=== PATIENT | female | born 1990 | race Caucasian/White ===

== ENCOUNTER 2021-04-23 23:02 | Emergency (ER) | payer SELFPAY ==
[2021-04-24] MEDS ORDERED: ACETAMINOPHEN 325 MG TAB PO ONE (00:51)
--- NOTE | 2021-04-24 00:54 | Emergency Department Report ---
ED General Adult HPI - General Chief complaint: Urogenital-Female Stated complaint: BURNING BREAST Time Seen by Provider: 04/24/21 00:18 Source: patient Mode of arrival: Ambulatory Limitations: No Limitations - History of Present Illness Initial comments: 30-year-old female presents to the ER today with complaints of a burning pain to both of her breasts. Patient states that her symptoms started about 3 days ago. She states that has been intermittent. Patient states that initially was some pain to the lateral aspect of both of breath but now she feels like is getting more diffuse and worse. She denies any apparent breast swelling, notable lumps or masses, skin color changes or nipple discharge. She denies any injury to her breasts. She denies any apparent rash. Patient states that her last menstrual cycle was March 19, 2021. She has not yet started her period for this month. She states that she does not think she is because she uses condoms for protection each time she has sexual intercourse. She denies any family history of breast cancer. She states that she tried ibuprofen for the pain without much relief. MD Complaint: Bilateral Breast pain -: Gradual - Related Data Previous Rx's Medication Instructions Recorded Last Taken Type Acetaminophen [Tylenol] 500 mg PO Q6HR #30 tablet 03/12/14 Unknown Rx cephALEXin [Keflex] 500 mg PO Q8HR #7 day 03/12/14 Unknown Rx Famotidine [Pepcid] 20 mg PO BID #30 tablet 04/24/21 Unknown Rx Ondansetron [Zofran Odt] 4 mg PO Q8HR PRN #15 tab.rapdis 04/24/21 Unknown Rx Pantoprazole [Protonix] 40 mg PO QDAY #30 tablet 04/24/21 Unknown Rx Allergies Allergy/AdvReac Type Severity Reaction Status Date / Time No Known Allergies Allergy Verified 03/11/14 20:07 ED Review of Systems ROS: Stated complaint: BURNING BREAST Other details as noted in HPI Comment: All other systems reviewed and negative Constitutional: denies: chills, fever Eyes: denies: eye pain, eye discharge, vision change ENT: denies: ear pain, throat pain, dental pain, hearing loss, epistaxis, congestion Respiratory: denies: cough, shortness of breath, SOB with exertion, SOB at rest, wheezing Cardiovascular: other (Bilateral breast pain). denies: chest pain, palpitations , dyspnea on exertion, syncope, paroxysmal nocturnal dyspnea Gastrointestinal: denies: abdominal pain, nausea, diarrhea Genitourinary: denies: urgency, dysuria, frequency, hematuria, discharge, abnormal menses, dyspareunia Musculoskeletal: denies: back pain, joint swelling, arthralgia Skin: denies: rash, lesions Neurological: denies: headache, weakness, numbness, paresthesias, confusion, abnormal gait, vertigo Psychiatric: denies: anxiety, depression, auditory hallucinations, visual hallucinations, homicidal thoughts Hematological/Lymphatic: denies: easy bleeding, easy bruising, swollen glands ED Past Medical Hx - Past Medical History Previous Medical History?: No - Surgical History Past Surgical History?: No - Social History Smoking Status: Never Smoker Substance Use Type: None - Medications Home Medications: Home Medications Medication Instructions Recorded Confirmed Last Taken Type Acetaminophen [Tylenol] 500 mg PO Q6HR #30 tablet 03/12/14 Unknown Rx cephALEXin [Keflex] 500 mg PO Q8HR #7 day 03/12/14 Unknown Rx Famotidine [Pepcid] 20 mg PO BID #30 tablet 04/24/21 Unknown Rx Ondansetron [Zofran Odt] 4 mg PO Q8HR PRN #15 tab.rapdis 04/24/21 Unknown Rx Pantoprazole [Protonix] 40 mg PO QDAY #30 tablet 04/24/21 Unknown Rx ED Physical Exam - General Limitations: No Limitations General appearance: alert, in no apparent distress - Head Head exam: Present: atraumatic, normocephalic, normal inspection - Eye Eye exam: Present: normal appearance, PERRL, EOMI Pupils: Present: normal accommodation - Neck Neck exam: Present: normal inspection, full ROM - Respiratory Respiratory exam: Present: normal lung sounds bilaterally, other (Mild tenderness to palpation to the lateral aspect of both breasts around 9:00; no apparent breast swelling, no mass or lumps palpated, no nipple discharge, no skin discoloration noted no rash). Absent: respiratory distress, wheezes, rales, rhonchi, stridor, chest wall tenderness - Cardiovascular Cardiovascular Exam: Present: regular rate, normal rhythm, normal heart sounds - Neurological Exam Neurological exam: Present: alert, oriented X3, CN II-XII intact, normal gait - Psychiatric Psychiatric exam: Present: normal affect, normal mood - Skin Skin exam: Present: intact ED Course Vital Signs 04/24/21 00:07 Temperature 98.0 F Pulse Rate 104 H Respiratory 16 Rate Blood Pressure 140/80 O2 Sat by Pulse 99 Oximetry ED Medical Decision Making - Lab Data Result diagrams: 04/24/21 02:48 04/24/21 02:48 - EKG Data EKG shows normal: sinus rhythm Rate: normal (96) - Radiology Data Radiology results: report reviewed Patient: ETELVINA CONROY MR#: [id number] : 1990 Acct:[id number] Age/Sex: 30 / F ADM Date: 04/23/21 Loc: ED Attending Dr: Ordering Physician: JESE MURGUIA Date of Service: 04/24/21 Procedure(s): XR chest routine 2V Accession Number(s): [id number] cc: JESE MURGUIA Fluoro Time In Minutes: XR chest routine 2V INDICATION / CLINICAL INFORMATION: burning in chest. COMPARISON: None available. FINDINGS: SUPPORT DEVICES: None. HEART /PULMONARY VASCULATURE: No significant abnormality. LUNGS / PLEURA: No significant pulmonary or pleural abnormality. No pneumothorax. ADDITIONAL FINDINGS: No significant additional findings. IMPRESSION: 1. No acute findings. Signer Name: Ernesto Garcia MD Signed: 04/24/2021 2:39 AM Workstation Name: [id number] Transcribed By: NERI Dictated By: ERNESTO GARCIA MD Electronically Authenticated By: ERNESTO GARCIA MD Signed Date/Time: 04/24/21 0239 - Medical Decision Making 0204 ; patient initially came in with complaints of burning sensation to both of her breast. While getting her ready for discharge, she started stating that she is now having burning in her substernal chest and now she feels nauseous and like she is about to vomit. She denies any shortness of breath, cough/URI symptoms, and Pleuritic pain. She denies any calf pain or leg swelling. She does not take any medications on a regular basis. She does not smoke, and she denies any illicit drug use. She denies any alcohol abuse. She denies any risk factors for PE/DVT. Reexamination of patient, shows that she appears anxious, and chest chest clear to auscultation. EKG has been ordered, chest x-ray ordered as well as some basic labs. 0355: EKG show normal sinus rhythm without any signs of STEMI, or other acute ischemic changes or significant dysrhythmias. Labs reviewed, CBC unremarkable, CMP shows mild hyperglycemia with a glucose of 132 and mild elevation to alk phos at 137, remainder of the CMP unremarkable. Troponin is negative. Chest x- ray shows nothing acute. Patient reports feeling much better the Pepcid, Zofran, Maalox and viscous lidocaine. Patient does have an elevated alk phos, but at this time patient has no abdominal pain and she has a soft nontender abdomen. Emergent gallbladder ultrasound not indicated at this time. Discussed labs results with patient. Patient reports history of gestational diabetes but she states that this had improved after she delivered but I do recommend that she follows up with her primary care doctor to keep monitoring her blood sugars, as well as alkaline phos. Patient symptoms could be related to GERD, very low suspicion at this time for acute coronary syndrome/unstable angina (Heart score 0), PE (PERC score 0), dissection, cholecystitis, sepsis or any other emergent c onditions warranting additional testing, or admission or specialist consult at this time. I also recommend that she follows up with her [facility] for breast mammograms. Patient expressed understanding of all instructions and agree with plan. Patient stable at time of discharge. Critical care attestation.: If time is entered above; I have spent that time in minutes in the direct care of this critically ill patient, excluding procedure time. ED Disposition Clinical Impression: Pain of both breasts, Nonspecific chest pain, GERD (gastroesophageal reflux disease), Elevated alkaline phosphatase level, Elevated blood sugar Disposition: 01 HOME / SELF CARE / HOMELESS Is pt being admited?: No Does the pt Need Aspirin: No Condition: Stable Instructions: Breast Tenderness, Heartburn, [id number], Food Choices for Gastroesophageal Reflux Disease, Adult, Nonspecific Chest Pain, Adult, Blood Glucose Monitoring, Adult Additional Instructions: It is important that you follow-up with your [facility] for outpatient mammogram for further evaluation of your bilateral breast pain. It is also important that you follow-up with the primary care doctor listed on your discharge instruction for continued monitoring of your blood sugars and also your alkaline phosphatase levels. Take the Pepcid and the Protonix as well as the Zofran as prescribed. You can take Tylenol as needed for pain. I would also recommend staying away from spicy foods, acidic foods, caffeine, NSAIDs for at least 2 weeks. Return to the ER if any symptoms changes or worsens in any way. Prescriptions: Famotidine [Pepcid] 20 mg PO BID #30 tablet Pantoprazole [Protonix] 40 mg PO QDAY #30 tablet Ondansetron [Zofran Odt] 4 mg PO Q8HR PRN #15 tab.rapdis PRN Reason: Nausea Referrals: [facility] [Provider Group] - 3-5 Days [facility] [Provider Group] - 3-5 Days [facility] [Provider Group] - 3-5 Days Forms: Work/School Release Form(ED) Time of Disposition: 01:53 Print Language: TUVALUAN
[2021-04-24] MEDS ORDERED: ONDANSETRON 4 MG ODT TAB PO ONE (02:03)
[2021-04-24] MEDS ORDERED: FAMOTIDINE 20 MG TAB PO ONE (02:03)
[2021-04-24] MEDS ORDERED: ALUM-MAG HYDROXIDE-SIMETHICONE 200-200-20MG/5ML ORAL LIQD 30 ML PO ONE (02:04)
--- NOTE | 2021-04-24 02:43 | XRay Report ---
XR chest routine 2V INDICATION / CLINICAL INFORMATION: burning in chest. COMPARISON: None available. FINDINGS: SUPPORT DEVICES: None. HEART /PULMONARY VASCULATURE: No significant abnormality. LUNGS / PLEURA: No significant pulmonary or pleural abnormality. No pneumothorax. ADDITIONAL FINDINGS: No significant additional findings. IMPRESSION: 1. No acute findings. Signer Name: Ishmael Garcia MD Signed: 04/24/2021 2:39 AM Workstation Name: [id number]
[2021-04-24] MEDS ORDERED: LIDOCAINE VISCOUS 2% 15 ML ORAL LIQD PO ONE (03:10)
[2021-04-24 03:29] LABS: Basophils % (Auto) 0.3 % (0.0-1.8); Eosinophils % (Auto) 0.1 % (0.0-4.3); Hemoglobin 13.2 gm/dl (10.1-14.3); Lymphocytes # (Auto) 1.4 K/mm3 (1.2-5.4); Lymphocytes % (Auto) 15.2 % (13.4-35.0); Mean Corpuscular HGB Conc 36 % (30-34); Mean Corpuscular Volume 87 fl (79-97); Monocytes # (Auto) 0.5 K/mm3 (0.0-0.8); Monocytes % (Auto) 5.4 % (0.0-7.3); Platelet Count 327 K/mm3 (140-440); Red Blood Count 4.24 M/mm3 (3.65-5.03); Red Cell Distribution Width 13.4 % (13.2-15.2)
[2021-04-24 03:42] LABS: Alanine Aminotransferase 21 units/L (7-56); Albumin 4.6 g/dL (3.9-5); Blood Urea Nitrogen 8 mg/dL (7-17); Calcium 9.3 mg/dL (8.4-10.2); Hemolysis Index 2
[2021-04-24 03:43] LABS: BUN/Creatinine Ratio 20
[2021-04-24 04:14] VITALS: BP 133/92
--- NOTE | 2021-04-25 11:37 | Electrocardiograph Report ---
[facility] Test Date: 2021-04-24 Test Time: 02:08:35 Pat Name: ETELVINA CONROY Department: Room: Gender: F Bench Worker: GREYSON : 1990 Requested By: JESE MURGUIA Order Number: [id number] Reading MD: Derian Paz Measurements Intervals [place] Rate: 96 P: 48 OR: 144 QRS: 54 QRSD: 101 T: 6 QT: 356 QTc: 449 Interpretive Statements Sinus rhythm Probable left atrial enlargement RSR' IN V1 OR V2, PROBABLY NORMAL VARIANT No previous ECG available for comparison Electronically Signed On 04-25-2021 11:37:19 EDT by Derian Paz
== END 2021-04-24 04:33 | disposition home or self-care (01) ==
LOC: ED 23:02
DX: N64.4 Mastodynia (principal); R07.9 Chest pain, unspecified; K21.9 Gastro-esophageal reflux disease without esophagitis; R74.8 Abnormal levels of other serum enzymes; R73.9 Hyperglycemia, unspecified
CPT/HCPCS: 36415; 71046; 80053; 84484; 84703; 85025; 93005; 99283; Q0162